=== PATIENT | male | born 1945 | race Caucasian/White ===

== ENCOUNTER 2018-09-24 08:12 | Emergency (ER) | payer MEDICARE ==
[2018-09-24] MEDS ORDERED: 0.9 % SODIUM CHLORIDE 1,000 ML BAG IV ONE (08:23)
[2018-09-24] MEDS ORDERED: KETOROLAC 30 MG/ML VIAL IVP ONE (08:28)
--- NOTE | 2018-09-24 08:34 | Emergency Department Record ---
History of Present Illness - General Chief Complaint: Back Pain/Injury Stated Complaint: BACK PAIN/LEG PAIN Time Seen by Provider: 09/24/18 08:23 Source: Patient, RN notes reviewed - History of Present Illness Initial Comments: patient tripped on the dog about 8 hours ago and injuried his left shoulder and right hip and back. He already was having back pain and saw me in the office yesterday and had a lumbar strain and started on flexeril and motrin and ultram. Patient said he got off the floor and laid on the couch and could not get up from the couch because of pain and EMS called and he was transported here. Patient complains of tingling in legs bilaterally from the waist down which is new since the fall. No head or neck pain and no LOC Onset/Timin -: Days(s) Similar Symptoms Previously: Yes Place: Home Radiation: Left leg, Right leg Severity: Severe Severity scale (1-10): 9 Quality: Sharp, Tingling Consistency: Constant Improves With: Immobilization Worsens With: Movement Context: Fall Associated Symptoms: Denies other symptoms - Related Data Home Medications Medication Instructions Recorded Confirmed Last Taken Cyclobenzaprine HCl [Flexeril] 10 mg PO TID 09/24/18 09/24/18 09/23/18 20:00 Sertraline HCl [Zoloft] 50 mg PO Q8H 09/24/18 09/24/18 09/23/18 20:00 Tramadol HCl [Ultram] 50 mg PO Q8H 09/24/18 09/24/18 09/23/18 20:00 Previous Rx's Medication Instructions Recorded Tramadol HCl [Ultram] 50 mg PO Q8H #9 tab 09/24/18 Allergies Allergy/AdvReac Type Severity Reaction Status Date / Time No Known Drug Allergies Allergy Verified 09/24/18 08:21 Travel Screening - Travel/Exposure Within Last 30 Days Have you traveled within the last 30 days?: No Review of Systems Reviewed: No additional complaints except as noted below Constitutional: Reports: As per HPI. Denies: Chills, Fever, Malaise, Night sweats, Weakness, Weight change Eyes: Reports: As per HPI. Denies: Eye discharge, Eye pain, Photophobia, Vision change ENT: Reports: As per HPI. Denies: Congestion, Dental pain, Ear pain, Epistaxis , Hearing loss, Throat pain Respiratory: Reports: As per HPI. Denies: Cough, Dyspnea, Hemoptysis, Stridor, Wheezes Cardiovascular: Reports: As per HPI. Denies: Arrhythmia, Chest pain, Dyspnea on exertion, Edema, Murmurs, Orthopnea, Palpitations, Paroxysmal nocturnal dyspnea, Rheumatic Fever, Syncope Endocrine: Reports: As per HPI. Denies: Fatigue, Heat or cold intolerance, Polydipsia, Polyuria Gastrointestinal: Reports: As per HPI. Denies: Abdominal pain, Constipation, Diarrhea, Hematemesis, Hematochezia, Melena, Nausea, Vomiting Genitourinary: Reports: As per HPI. Denies: Dysuria, Frequency, Hematuria, Incontinence, Retention, Testicular pain, Testicular mass, Urgency Musculoskeletal: Reports: As per HPI, Other (left shoulder pain, right hip pain , back pain). Denies: Arthralgia, Back pain, Gout, Joint swelling, Myalgia, Neck pain Skin: Reports: As per HPI. Denies: Bruising, Change in color, Change in hair/ nails, Lesions, Pruritus, Rash Neurological: Reports: As per HPI. Denies: Abnormal gait, Confusion, Headache, Numbness, Paresthesias, Seizure, Tingling, Tremors, Vertigo, Weakness Psychiatric: Reports: As per HPI. Denies: Anxiety, Auditory hallucinations, Depression, Homicidal thoughts, Suicidal thoughts, Visual hallucinations Hematological/Lymphatic: Reports: As per HPI. Denies: Anemia, Blood Clots, Easy bleeding, Easy bruising, Swollen glands Past Medical History - SOCIAL HISTORY Smoking Status: Former smoker Alcohol Use: Occasional Drug Use: None - RESPIRATORY Hx Respiratory Disorders: No - CARDIOVASCULAR Hx Cardio Disorders: No - NEURO Hx Neuro Disorders: Yes Hx Dizziness: Yes Hx Headaches: Yes - GI Hx GI Disorders: No - Hx Genitourinary Disorders: No - ENDOCRINE Hx Endocrine Disorders: No - MUSCULOSKELETAL Hx Musculoskeletal Disorders: Yes Hx Arthritis: Yes - PSYCH Hx Psych Problems: Yes Hx Anxiety: Yes - HEMATOLOGY/ONCOLOGY Hx Hematology/Oncology Disorders: No Family Medical History Any Significant Family History?: No Physical Exam - General General Appearance: Alert, Oriented x3, Cooperative, Mild distress - Head Head exam: Normal inspection - Eye Eye exam: Normal appearance, PERRL Pupils: Normal accommodation - ENT ENT exam: Normal exam, Mucous membranes moist, Normal external ear exam, Normal orophraynx, TM's normal bilaterally Ear exam: Normal external inspection. negative: External canal tenderness Nasal Exam: Normal inspection. negative: Discharge, Sinus tenderness Mouth exam: Normal external inspection, Tongue normal Teeth exam: Normal inspection. negative: Dental caries Throat exam: Normal inspection. negative: Tonsillar erythema, Tonsillar exudate - Neck Neck exam: Normal inspection, Full ROM. negative: Tenderness - Respiratory Respiratory exam: Normal lung sounds bilaterally. negative: Respiratory distress - Cardiovascular Cardiovascular Exam: Regular rate, Normal rhythm, Normal heart sounds - GI/Abdominal GI/Abdominal exam: Soft, Normal bowel sounds. negative: Tenderness - Rectal Rectal exam: Deferred - exam: Deferred - Extremities Extremities exam: Normal inspection, Full ROM, Normal capillary refill, Tenderness (left shoulder pain and right hip pain and low back pain. ) - Back Back exam: Reports: Normal inspection, Full ROM. Denies: Muscle spasm, Rash noted, Tenderness - Neurological Neurological exam: Alert, Oriented X3, Reflexes normal, Other (patient able to bend knees bilaterally and raise legs off bed,neuro vascular intact except numbness into both legs) - Psychiatric Psychiatric exam: Normal affect, Normal mood - Skin Skin exam: Dry, Intact, Normal color, Warm Course Vital Signs 09/24/18 08:15 Temperature 98.3 F Pulse Rate 71 Respiratory 20 Rate Blood Pressure 129/93 Pulse Ox 98 Medical Decision Making - Data Complexity MDM Data: X-Ray Ordered and/or Reviewed (negative for fractures) - Lab Data Result diagrams: 09/24/18 08:30 09/24/18 08:30 Disposition Clinical Impression: Contusion, back Qualifiers: Encounter type: initial encounter Laterality: right Qualified Code(s): S20.221A - Contusion of right back wall of thorax, initial encounter Contusion of shoulder Qualifiers: Encounter type: initial encounter Laterality: left Qualified Code(s): S40.012A - Contusion of left shoulder, initial encounter Contusion of hip, right Qualifiers: Encounter type: initial encounter Qualified Code(s): S70.01XA - Contusion of right hip, initial encounter Disposition: Home, Self-Care Condition: (1) Good Instructions: Low Back Strain (ED), Contusion in Adults (ED) Additional Instructions: follow up with Dr Man on next Oct 02 ice to back for 48 hours 20 minutes at a time than switch to heat 20 minutes at a time Prescriptions: Tramadol HCl [Ultram] 50 mg PO Q8H #9 tab Forms: Patient Portal Access Time of Disposition: 11:11 Quality - Quality Measures Quality Measures: N/A - Blood Pressure Screening Does Patient Have Any of the Following: No Blood Pressure Classification: Hypertensive Reading Systolic Measurement: 129 Diastolic Measurement: 93 Screening for High Blood Pressure: < Pre-Hypertensive BP, F/U Documented > [ G8950] Pre-Hypertensive Follow-up Interventions: Referral to alternative/primary care provider.
[2018-09-24 08:48] LABS: BASO % 0.4 % (0-6); GRAN % 77.7 % (47-80); HEMATOCRIT 40.1 % (42.0-52.0); HEMOGLOBIN 14.1 gm/dl (14.0-18.0); LYMPH % 15.8 % (16-45); MEAN CELL VOLUME 92.2 fl (81-97); MEAN CORPUSCULAR HEMOGLOBIN 32.4 pg (27-33); MEAN CORPUSCULAR HGB CONC 35.2 g/dl (32-36); MEAN PLATELET VOLUME 9.4 fl (7.4-10.4); MONO % 4.1 % (0-9); PLATELET COUNT 191 K/uL (130-400); RED BLOOD COUNT 4.35 M/uL (4.40-5.70); RED CELL DISTRIBUTION WIDTH 12.9 % (11.5-14.5); WHITE BLOOD COUNT W/O DIFF 5.6 K/uL (4.2-12.2)
[2018-09-24 08:51] LABS: URINE APPEARANCE CLEAR; URINE BILIRUBIN NEGATIVE (NEGATIVE); URINE BLOOD NEGATIVE (NEGATIVE); URINE COLOR YELLOW; URINE GLUCOSE (UA) NEGATIVE (NEGATIVE); URINE KETONE NEGATIVE (NEGATIVE); URINE LEUKOCYTE ESTERASE NEGATIVE (NEGATIVE); URINE NITRITE NEGATIVE (NEGATIVE); URINE PROTEIN NEGATIVE (NEGATIVE); URINE UROBILINOGEN 0.2 E.U./dL (0.20 - 1.00)
[2018-09-24 09:01] LABS: BLOOD UREA NITROGEN 19 mg/dL (8-23); CREATININE 1.2 mg/dL (0.7-1.2); EST GLOMERULAR FILTRATION RATE > 60 mL/min
[2018-09-24 09:04] LABS: GLUCOSE,RANDOM 100 mg/dL (74-109)
[2018-09-24] MEDS ORDERED: HYDROMORPHONE HCL 2 MG/ML VIAL IVP ONE (10:19)
[2018-09-24] MEDS ORDERED: ONDANSETRON HCL IV 4 MG/2 ML VIAL IVP ONE (10:19)
--- NOTE | 2018-09-25 12:30 | RADIOLOGY REPORT ---
EXAM: AP PELVIS AND RIGHT HIP HISTORY: PAIN. TECHNIQUE: A single AP view of the pelvis and AP and frog leg views of the right hip were performed. FINDINGS: There is osteopenia. No evidence of fracture or dislocation. No avascular necrosis. Mild degenerative change of the superior acetabulum. IMPRESSION: NEGATIVE FOR FRACTURE OR DISLOCATION. JOB NUMBER: [id number] MTDD
--- NOTE | 2018-09-25 12:36 | RADIOLOGY REPORT ---
EXAM: LUMBOSACRAL SPINE HISTORY: BACK PAIN. TECHNIQUE: AP and lateral views of the lumbosacral spine were performed. FINDINGS: Normal height and alignment. No evidence of fracture, spondylolysis or spondylolisthesis. There is calcification of the abdominal aorta. IMPRESSION: 1. NO EVIDENCE OF FRACTURE, SPONDYLOLYSIS OR SPONDYLOLISTHESIS. 2. CALCIFICATION OF THE ABDOMINAL AORTA. JOB NUMBER: [id number] MTDD
--- NOTE | 2018-09-25 12:38 | RADIOLOGY REPORT ---
EXAM: LEFT SHOULDER HISTORY: INJURY. TECHNIQUE: Three views of the left shoulder were performed. FINDINGS: Mild degenerative change of the acromioclavicular and glenohumeral joint space. No evidence of fracture or dislocation. No lytic or blastic lesion. IMPRESSION: MILD DEGENERATIVE CHANGE OF THE ACROMIOCLAVICULAR AND GLENOHUMERAL JOINT SPACES. NO ACUTE PROCESS. JOB NUMBER: [id number] MTDD
== END 2018-09-24 11:44 | disposition home or self-care (01) ==
LOC: ER 08:12
DX: S20.221A Contusion of right back wall of thorax, initial encounter (principal); S40.012A Contusion of left shoulder, initial encounter; S70.01XA Contusion of right hip, initial encounter; R20.2 Paresthesia of skin; W01.198A Fall on same level from slipping, tripping and stumbling with subsequent striking against other object, initial encounter; Y92.009 Unspecified place in unspecified non-institutional (private) residence as the place of occurrence of the external cause; Z87.891 Personal history of nicotine dependence
CPT/HCPCS: 99284 ×2; 96374; 96375; 85025; 85730; 80048; 81003; 72100; 73030; 73502; G0480; J1885; J2405; J1170; 80320; J7030

== ENCOUNTER 2018-09-29 10:08 | Emergency (ER) | payer MEDICARE ==
[2018-09-29] MEDS ORDERED: SODIUM CHLORIDE 0.9% 500 ML IV ONE (10:24)
[2018-09-29] MEDS ORDERED: ONDANSETRON HCL IV 4 MG/2 ML VIAL IVP ONE (10:24)
[2018-09-29] MEDS ORDERED: MORPHINE SULFATE 10 MG/ML VIAL IVP ONE (10:24)
--- NOTE | 2018-09-29 10:37 | Emergency Department Record ---
History of Present Illness - General Chief Complaint: Back Pain/Injury Stated Complaint: BACK PAIN Time Seen by Provider: 09/29/18 10:17 Source: Patient, Family Mode of Arrival: EMS Limitations: No limitations - History of Present Illness Initial Comments: The patient is here due to worsening of his chronic back pain for the last 1-2 weeks. The pain now is worsening and he is having pain radiate to both buttocks with any standing or walking. The patient denies any leg weakness but does have bilateral paresthesias and what he describes as a R foot drop. Additionally he has had no bowel or bladder incontinence. The patient was in the ER 5 days ago for this also and was discharged on Flexeril and Tramadol. He has not been able to get up and walk since. Since discharge he has developed a macular rash to the backs of both arms but denies any rash anywhere else and no itching. MD Complaint: Back pain Onset/Timin -: Week(s) Similar Symptoms Previously: Yes Place: Home Improves With: None Worsens With: None Context: Unknown Associated Symptoms: Denies other symptoms - Related Data Allergies Allergy/AdvReac Type Severity Reaction Status Date / Time No Known Drug Allergies Allergy Verified 09/29/18 10:14 Travel Screening - Travel/Exposure Within Last 30 Days Have you traveled within the last 30 days?: No Review of Systems Constitutional: Denies: Chills, Fever Eyes: Denies: Eye discharge ENT: Denies: Congestion Respiratory: Denies: Cough, Dyspnea Cardiovascular: Denies: Chest pain Endocrine: Denies: Fatigue Gastrointestinal: Denies: Abdominal pain, Nausea Genitourinary: Denies: Hematuria Musculoskeletal: Reports: Back pain. Denies: Arthralgia Skin: Denies: Bruising Neurological: Reports: Abnormal gait Past Medical History - SOCIAL HISTORY Smoking Status: Former smoker Alcohol Use: None Drug Use: None - RESPIRATORY Hx Respiratory Disorders: No - CARDIOVASCULAR Hx Cardio Disorders: No - NEURO Hx Neuro Disorders: Yes Hx Dizziness: Yes Hx Headaches: Yes - GI Hx GI Disorders: No - Hx Genitourinary Disorders: No - ENDOCRINE Hx Endocrine Disorders: No - MUSCULOSKELETAL Hx Musculoskeletal Disorders: Yes Hx Arthritis: Yes - PSYCH Hx Psych Problems: Yes Hx Anxiety: Yes - HEMATOLOGY/ONCOLOGY Hx Hematology/Oncology Disorders: No Family Medical History Any Significant Family History?: No Physical Exam - General General Appearance: Alert, Oriented x3, Cooperative, No acute distress - Head Head exam: Atraumatic, Normocephalic, Normal inspection - Eye Eye exam: Normal appearance, PERRL - Neck Neck exam: Normal inspection, Full ROM. negative: Tenderness - Respiratory Respiratory exam: Normal lung sounds bilaterally. negative: Respiratory distress - Cardiovascular Cardiovascular Exam: Regular rate, Normal rhythm, Normal heart sounds - GI/Abdominal GI/Abdominal exam: Soft, Normal bowel sounds. negative: Rebound, Rigid, Tenderness - Rectal Rectal exam: Decreased rectal tone. negative: Normal rectal tone (decreased tone but present.) - Extremities Extremities exam: Normal inspection, Full ROM, Normal capillary refill, Other ( DP pulses 2+ bilaterally.). negative: Tenderness - Back Back exam: Reports: Normal inspection, Paraspinal tenderness (in the L3-5 area.) , Vertebral tenderness - Neurological Neurological exam: Abnormal gait, Alert, Motor sensory deficit (The patient has 4+/5 pain to all the lower leg muscle groups due to pain and is unable to extend the R foot. He clearly has a R foot drop. ), Oriented X3, Other (There is positive SLR signs bilaterally.). negative: Altered, Normal gait, Reflexes normal (The patellar reflexes are 1+ in the bilateral patellar areas and Tr. in the achilles areas.) Course Vital Signs 09/29/18 10:09 Temperature 98.4 F Pulse Rate 105 H Respiratory 20 Rate Blood Pressure 169/101 Pulse Ox 94 L - Reevaluation(s) Reevaluation #1: The patient is doing OK at this time but due to the nature of his complaints I do feel he needs an urgent MRI. He would like to go to [facility] so I did discuss the case with Dr. Davis in the ER and he does accept the patient in transfer. I also did discuss the case with Dr. Alva (Neurosurg) about the patient and he also is aware. 09/29/18 11:18 Medical Decision Making - Data Complexity MDM Data: Labs Ordered and/or Reviewed - Lab Data Result diagrams: 09/29/18 10:30 09/29/18 10:30 Disposition Disposition: Transfer Clinical Impression: Lumbar radiculopathy, acute Disposition: Acute Care Hospital Transfer Transfer To: [facility] ED Reason For Transfer: Neurosurg Accepting Physician: Ryan Time Discussed w/Accepting Physician: 11:21 Condition: (2) Stable Instructions: Low Back Strain (ED) Forms: Patient Portal Access Time of Disposition: 11:21 Quality - Quality Measures Quality Measures: N/A - Blood Pressure Screening View Details: Yes Does Patient Have Any of the Following: No Blood Pressure Classification: Hypertensive Reading Systolic Measurement: 171 Diastolic Measurement: 94 Screening for High Blood Pressure: < First Hypertensive BP, F/U Documented > [ G8950] First Hypertensive Follow-up Interventions: Referral to alternative/primary care provider.
[2018-09-29 10:42] LABS: BASO % 0.2 % (0-6); EOS % 1.3 % (0-6); GRAN % 79.7 % (47-80); HEMATOCRIT 43.2 % (42.0-52.0); HEMOGLOBIN 15.5 gm/dl (14.0-18.0); LYMPH % 12.6 % (16-45); MEAN CELL VOLUME 89.6 fl (81-97); MEAN CORPUSCULAR HEMOGLOBIN 32.2 pg (27-33); MEAN CORPUSCULAR HGB CONC 35.9 g/dl (32-36); MEAN PLATELET VOLUME 9.3 fl (7.4-10.4); MONO % 6.2 % (0-9); PLATELET COUNT 225 K/uL (130-400); RED BLOOD COUNT 4.82 M/uL (4.40-5.70); RED CELL DISTRIBUTION WIDTH 12.9 % (11.5-14.5); WHITE BLOOD COUNT W/O DIFF 5.9 K/uL (4.2-12.2)
[2018-09-29 10:51] LABS: BLOOD UREA NITROGEN 28 mg/dL (8-23); CREATININE 0.9 mg/dL (0.7-1.2); EST GLOMERULAR FILTRATION RATE > 60 mL/min
[2018-09-29 10:54] LABS: GLUCOSE,RANDOM 123 mg/dL (74-109)
[2018-09-29] MEDS ORDERED: HYDROMORPHONE HCL 2 MG/ML VIAL IVP ONE (10:54)
[2018-09-29 10:57] LABS: C-REACTIVE PROTEIN 1.68 mg/dL (<0.5)
[2018-09-29 11:23] LABS: ERYTHROCYTE SEDIMENTATION RATE 28 mm/hr (0-20)
== END 2018-09-29 11:45 | disposition short-term general hospital (02) ==
LOC: ER 10:08
DX: M54.16 Radiculopathy, lumbar region (principal); R21 Rash and other nonspecific skin eruption; Z87.891 Personal history of nicotine dependence
CPT/HCPCS: 99285 ×2; 96374; 96375; 85025; 85651; 86140; 80048; J2405; J2270

== ENCOUNTER 2018-10-02 16:06 | Inpatient (IN) | payer MEDICARE ==
--- NOTE | 2018-10-02 18:28 | History & Physical ---
History of Present Illness - Date Date of Service for History & Physical: 10/02/18 - History of Present Illness Admitting Diagnosis: Deconditioning due L3-4 fragment and cord compression S/P laminectomy History of Present Illness: Patient is here at [facility] rehab from an injury wher he fell and developed a cord compression from disc fragments requiring urgent neurosurg for a laminectomy L3 with L3-L4 discectomy. Patient has a persistent right foot drop and he was fitted for a AFO right lower leg. His discharge diagnoses were Acute on Chronic Low back pain with radiculopathy, Large L3-L4 disc protrusion with sequestered free fragment with cord compression S/P surgery on 09/30/2017. Right Foot droop,HRN,Urnary retention,HLD. Patient informed me he had trouble with the pain medication wheere he was seeing things and also became agitated. currently sent home with tylenol and norco and I told him to try to limit the norco as much as possible. General - Cognitive Patterns Orientation: Oriented x3 - Communication Preferred Language?: Slovenian [employer] Required: No Level of Education: College Preferred Method of Learning: Seeing, Doing Comprehension Ability: No Impairment Able to Read: Yes Able to Write: Yes Select best description of speech pattern: Clear Speech Ability to express ideas and wants: Understood Understanding verbal content: Understands - Psychosocial Well-Being Usual Living Arrangement: Spouse - Physical Functioning Activity Level: Up with assist x1 Turning: Self ad ricky ROM Ability: Moves all extremities Assistive Devices: 2 Wheel Walker Ambulation Ability: Needs Assist Bed Mobility: Independent Transfer Ability: Needs Assist Bathing Ability: Needs Assist Personal Hygiene: Independent Dressing Ability: Independent Eating (Feeding) Ability: Independent Toileting Ability: Needs Assist Administer Own Medication: Independent - Continence Bowel Pattern: Constipated Bladder Pattern: Normal - Dental Status Unable to examine: No Broken or loosely fitting full or partial dentures: No No natural teeth or tooth fragment(s) (edentulous): No Abnormal mouth tissue (ulcers, masses, oral lesions, etc.): No Obvious or likely cavity or broken natural teeth: No Inflamed or bleeding gums or loose natural teeth: No Mouth/facial pain, discomfort or difficulty chewing: No - Nutrition Screening Poor oral intake > 1 week: No Unplanned weight loss in specified time frame: No Nutrition Support via tube feedings or parenteral nutrition: No Pressure Ulcer: No Significantly underweight define as BMI <18.5 kg/m2: No Albumin <2.5mg/dL: No Persistent nausea/vomiting/diarrhea >3 days: No Difficulty chewing/swallowing/mouth sores: No Admitting Diagnosis: No Nutrition Risk Score: Low Risk Review of Systems Reviewed: No additional complaints except as noted below Constitutional: Reports: As per HPI. Denies: Chills, Fever, Malaise, Night sweats, Weakness, Weight change Eyes: Reports: As per HPI. Denies: Eye discharge, Eye pain, Photophobia, Vision change ENT: Reports: As per HPI. Denies: Congestion, Dental pain, Ear pain, Epistaxis , Hearing loss, Throat pain Respiratory: Reports: As per HPI. Denies: Cough, Dyspnea, Hemoptysis, Stridor, Wheezes Cardiovascular: Reports: As per HPI. Denies: Arrhythmia, Chest pain, Dyspnea on exertion, Edema, Murmurs, Orthopnea, Palpitations, Paroxysmal nocturnal dyspnea, Rheumatic Fever, Syncope Endocrine: Reports: As per HPI. Denies: Fatigue, Heat or cold intolerance, Polydipsia, Polyuria Gastrointestinal: Reports: As per HPI. Denies: Abdominal pain, Constipation, Diarrhea, Hematemesis, Hematochezia, Melena, Nausea, Vomiting Genitourinary: Reports: As per HPI. Denies: Dysuria, Frequency, Hematuria, Incontinence, Retention, Testicular pain, Testicular mass, Urgency Musculoskeletal: Reports: As per HPI. Denies: Arthralgia, Back pain, Gout, Joint swelling, Myalgia, Neck pain Skin: Reports: As per HPI. Denies: Bruising, Change in color, Change in hair/ nails, Lesions, Pruritus, Rash Neurological: Reports: As per HPI, Numbness (right leg and right foot drop). Denies: Abnormal gait, Confusion, Headache, Paresthesias, Seizure, Tingling, Tremors, Vertigo, Weakness Psychiatric: Reports: As per HPI. Denies: Anxiety, Auditory hallucinations, Depression, Homicidal thoughts, Suicidal thoughts, Visual hallucinations Hematological/Lymphatic: Reports: As per HPI. Denies: Anemia, Blood Clots, Easy bleeding, Easy bruising, Swollen glands Past Medical History - SOCIAL HISTORY Smoking Status: Former smoker Alcohol Use: Occasional - SURGICAL HISTORY Past Surgical History: appendix - RESPIRATORY Hx Respiratory Disorders: No - CARDIOVASCULAR Hx Cardio Disorders: No Hx Hypertension: Yes - NEURO Hx Neuro Disorders: Yes Hx Dizziness: Yes Hx Headaches: Yes Comment:: cord compression from L3 l4 disc and right foot drop - GI Hx GI Disorders: No - Hx Genitourinary Disorders: No - ENDOCRINE Hx Endocrine Disorders: No - MUSCULOSKELETAL Hx Musculoskeletal Disorders: Yes Hx Arthritis: Yes - PSYCH Hx Psych Problems: Yes Hx Anxiety: Yes - HEMATOLOGY/ONCOLOGY Hx Hematology/Oncology Disorders: No Family Medical History Any Significant Family History?: Yes Hx Alcohol Use: Brother/Sister Hx Cancer: Mother H&P Meds/Allergies - Allergies Allergies: Allergies Allergy/AdvReac Type Severity Reaction Status Date / Time No Known Drug Allergies Allergy Verified 09/29/18 10:14 - Active Medications Active Medications: Current Medications Acetaminophen (Tylenol 325mg) 650 mg PO Q4H PRN PRN Reason: PAIN - MILD(1-4)/FEVER Hydrocodone Bitart/Acetaminophen ([place] 5mg/325mg) 1 each PO Q4H PRN PRN Reason: PAIN - MOD TO SEVERE (5-10) Cyclobenzaprine HCl (Flexeril) 10 mg PO TID PRN PRN Reason: MUSCLE SPASM Patient Own Med: Ergocalciferol 50, 000 Iu 1 each PO WEEKLY KAMILLA Sertraline HCl (Zoloft) 150 mg PO DAILY KAMILLA Physical Exam - General General Appearance: Alert, Oriented x3, Cooperative, No acute distress - Head Head exam: Normal inspection - Eye Eye exam: Normal appearance, PERRL Pupils: Normal accommodation - ENT ENT exam: Normal exam, Mucous membranes moist, Normal external ear exam, Normal orophraynx, TM's normal bilaterally Ear exam: Normal external inspection. negative: External canal tenderness Nasal Exam: Normal inspection. negative: Discharge, Sinus tenderness Mouth exam: Normal external inspection, Tongue normal Teeth exam: Normal inspection. negative: Dental caries Throat exam: Normal inspection. negative: Tonsillar erythema, Tonsillar exudate - Neck Neck exam: Normal inspection, Full ROM. negative: Tenderness - Respiratory Respiratory exam: Normal lung sounds bilaterally. negative: Respiratory distress - Cardiovascular Cardiovascular Exam: Regular rate, Normal rhythm, Normal heart sounds - GI/Abdominal GI/Abdominal exam: Soft, Normal bowel sounds. negative: Tenderness - Rectal Rectal exam: Deferred - exam: Deferred - Extremities Extremities exam: Normal inspection, Full ROM, Normal capillary refill, Other ( numbness right leg with right foot drop). negative: Tenderness - Back Back exam: Reports: Normal inspection, Full ROM. Denies: Muscle spasm, Rash noted, Tenderness - Neurological Neurological exam: Abnormal gait, Alert, Oriented X3, Reflexes normal, Other ( right foot drop) - Psychiatric Psychiatric exam: Normal affect, Normal mood - Skin Skin exam: Dry, Intact, Normal color, Warm H&P Results - Labs Result Diagrams: 10/03/18 06:00 10/03/18 06:00 Discharge Potential - Discharge Needs Community Services Used Prior to Admission: None Patient Discharge Plan Description: Return Home Plan - Swing Bed Certification Initial Certification Due: 10/02/18 14 Day Re-Cert Due: 10/16/18 44 Day Re-Cert Due: 11/15/18 74 Day Re-Cert Due: 12/15/18 - Detailed Diagnosis and Plan (1) Cord compression myelopathy Current Visit: Yes Status: Acute Base Code: G95.20 - UNSPECIFIED CORD COMPRESSION (2) Foot drop, right Current Visit: Yes Status: Acute Base Code: M21.371 - FOOT DROP, RIGHT FOOT (3) Acute exacerbation of chronic low back pain Current Visit: Yes Status: Acute Base Code: M54.5 - LOW BACK PAIN; G89.29 - OTHER CHRONIC PAIN (4) Hypertension Current Visit: Yes Status: Acute Base Code: I10 - ESSENTIAL (PRIMARY) HYPERTENSION (5) History of urinary retention Current Visit: Yes Status: Acute Base Code: Z87.898 - PERSONAL HISTORY OF OTHER SPECIFIED CONDITIONS Comment: resolved and doesn't have a varma - Disposition rehab to go home
[2018-10-02] MEDS: MAGNESIUM HYDROXIDE 30 ML UDC PO PRN (22:55)
[2018-10-03 06:29] LABS: BASO % 0.2 % (0-6); EOS % 0.9 % (0-6); GRAN % 72.4 % (47-80); HEMATOCRIT 37.8 % (42.0-52.0); HEMOGLOBIN 13.3 gm/dl (14.0-18.0); LYMPH % 16.4 % (16-45); MEAN CELL VOLUME 91.5 fl (81-97); MEAN CORPUSCULAR HEMOGLOBIN 32.2 pg (27-33); MEAN CORPUSCULAR HGB CONC 35.2 g/dl (32-36); MEAN PLATELET VOLUME 9.3 fl (7.4-10.4); MONO % 10.1 % (0-9); PLATELET COUNT 213 K/uL (130-400); RED BLOOD COUNT 4.13 M/uL (4.40-5.70); RED CELL DISTRIBUTION WIDTH 12.3 % (11.5-14.5); WHITE BLOOD COUNT W/O DIFF 6.3 K/uL (4.2-12.2)
[2018-10-03 06:51] LABS: BLOOD UREA NITROGEN 20 mg/dL (8-23); CREATININE 0.9 mg/dL (0.7-1.2); EST GLOMERULAR FILTRATION RATE > 60 mL/min; GLUCOSE,RANDOM 118 mg/dL (74-109)
--- NOTE | 2018-10-03 09:33 | Physician Progress Note ---
Subjective - Date Date of Progress Note: 10/03/18 - Admitting Diagnosis Diagnosis: Deconditioning due L3-4 fragment and cord compression S/P laminectomy - Subjective Events since last encounter: patient has some bruising on the right hand dorsum. Reevaluated his right leg patient has small amount of movement of toes and not any motion of ankle with extension and dorsi flexion. Good motion of knee right and hip and he has an AFO brace. Patient said the bruising on his hand was notice today and he had two similiar spots on his elbows which happened at [place] after surgery and they are going away and the spot on his hand has a spot from either a blood draw or an IV. Will watch. Patient has been up to the bathroom 3-4 times during the night and not requiring any pain medications per patient and will check with the [place]. Nursing Care Plan Problem List Activity Intolerance (Swing Bed) Start: 10/02/18 16: 21 Freq: Status: Active Protocol: Created 10/02/18 16:21 SS (Rec: 10/02/18 16:21 SS [id number]) Knowledge Deficit (Swing Bed) Start: 10/02/18 16: 21 Freq: Status: Active Protocol: Created 10/02/18 16:21 SS (Rec: 10/02/18 16:21 SS [id number]) Pain (Swing Bed) Start: 10/02/18 16: 21 Freq: Status: Active Protocol: Created 10/02/18 16:21 SS (Rec: 10/02/18 16:21 SS [id number]) Subjective: Patient denies much pain in the back and has not used any pain medication since admission. Patient waking to the bathroom with a walker and one person assist. Patient sat up in bed with a one person assist. - Subjective Detail Comment: No additional complaints except as noted below General - Cognitive Patterns Speech: Normal Thought Process: Intact Thought Content: Normal - Communication Select best description of speech pattern: Clear Speech Ability to express ideas and wants: Understood Understanding verbal content: Understands - Mood and Behavior Patterns Appearance: Well Groomed Mood: Normal Attitude: Cooperative Motor Activity: Calm Affect: Appropriate Hallucinations: Denies - Physical Functioning Activity Level: Up with assist x1 Turning: Self ad ricky ROM Ability: Moves all extremities Assistive Devices: 2 Wheel Walker Ambulation Ability: Needs Assist Bed Mobility: Independent Transfer Ability: Needs Assist Bathing Ability: Needs Assist Personal Hygiene: Independent Dressing Ability: Independent Eating (Feeding) Ability: Independent Toileting Ability: Needs Assist Administer Own Medication: Independent - Continence Bowel Pattern: Constipated Bladder Pattern: Normal Meds/Allergies - Allergies Allergies Allergy/AdvReac Type Severity Reaction Status Date / Time No Known Drug Allergies Allergy Verified 09/29/18 10:14 - Active Medications Current Medications Acetaminophen (Tylenol 325mg) 650 mg PO Q4H PRN PRN Reason: PAIN - MILD(1-4)/FEVER Hydrocodone Bitart/Acetaminophen ([place] 5mg/325mg) 1 each PO Q4H PRN PRN Reason: PAIN - MOD TO SEVERE (5-10) Cyclobenzaprine HCl (Flexeril) 10 mg PO TID PRN PRN Reason: MUSCLE SPASM Enoxaparin Sodium (Lovenox) 40 mg SQ DAILY [facility] Magnesium Hydroxide (Milk Of Magnesium) 30 ml PO DAILY PRN PRN Reason: INDIGESTION Last Admin: 10/02/18 22:55 Dose: 30 ml Patient Own Med: Ergocalciferol 50, 000 Iu 1 each PO WEEKLY [facility] Sertraline HCl (Zoloft) 150 mg PO DAILY [facility] Objective - Vital Signs Vital Signs: Vital Signs - Last 24 Hrs Temp Pulse Resp BP Pulse Ox 10/03/18 08:00 98.1 F 90 14 163/92 99 10/02/18 20:00 99.3 F 92 H 20 127/77 95 - General General Appearance: Alert, Oriented x3, Cooperative, No acute distress - Head Head exam: Normal inspection - Eye Eye exam: Normal appearance, PERRL Pupils: Normal accommodation - ENT ENT exam: Normal exam, Mucous membranes moist, Normal external ear exam, Normal orophraynx, TM's normal bilaterally Ear exam: Normal external inspection. negative: External canal tenderness Nasal Exam: Normal inspection. negative: Discharge, Sinus tenderness Mouth exam: Normal external inspection, Tongue normal Teeth exam: Normal inspection. negative: Dental caries Throat exam: Normal inspection. negative: Tonsillar erythema, Tonsillar exudate - Neck Neck exam: Normal inspection, Full ROM. negative: Tenderness - Respiratory Respiratory exam: Normal lung sounds bilaterally. negative: Respiratory distress - Cardiovascular Cardiovascular Exam: Regular rate, Normal rhythm, Normal heart sounds - GI/Abdominal GI/Abdominal exam: Soft, Normal bowel sounds. negative: Tenderness - Rectal Rectal exam: Deferred - exam: Deferred - Extremities Extremities exam: Normal inspection, Normal capillary refill, Other (numbness right leg with right foot drop, patient has movement of toes and no movement at ankle, his right knee moves and right hip moves). negative: Tenderness - Back Back exam: Reports: Normal inspection, Full ROM. Denies: Muscle spasm, Rash noted, Tenderness - Neurological Neurological exam: Abnormal gait, Alert, Oriented X3, Reflexes normal, Other ( right foot drop) - Psychiatric Psychiatric exam: Normal affect, Normal mood - Skin Skin exam: Dry, Intact, Normal color, Warm H&P Results - Labs Result Diagrams: 10/03/18 06:12 10/03/18 06:12 Labs Last 24 Hours: Laboratory Results - last 24 hr 10/03/18 10/03/18 06:12 06:12 WBC 6.3 RBC 4.13 L Hgb 13.3 L Hct 37.8 L MCV 91.5 MCH 32.2 MCHC 35.2 RDW 12.3 Plt Count 213 MPV 9.3 Gran % 72.4 Lymphocytes % 16.4 Monocytes % 10.1 H Eosinophils % 0.9 Basophils % 0.2 Sodium 138 Potassium 3.7 Chloride 99 Carbon Dioxide 27.0 Anion Gap 12.0 BUN 20 Creatinine 0.9 Estimated GFR > 60 Random Glucose 118 H Calcium 9.3 Discharge Potential - Discharge Needs Community Services Used Prior to Admission: None Patient Discharge Plan Description: Return Home Plan - Swing Bed Certification Initial Certification Due: 10/02/18 14 Day Re-Cert Due: 10/16/18 44 Day Re-Cert Due: 11/15/18 74 Day Re-Cert Due: 12/15/18 - Detailed Diagnosis and Plan (1) Cord compression myelopathy Current Visit: Yes Status: Acute Base Code: G95.20 - UNSPECIFIED CORD COMPRESSION Priority: High (2) Foot drop, right Current Visit: Yes Status: Acute Base Code: M21.371 - FOOT DROP, RIGHT FOOT Priority: Medium (3) Acute exacerbation of chronic low back pain Current Visit: Yes Status: Acute Base Code: M54.5 - LOW BACK PAIN; G89.29 - OTHER CHRONIC PAIN Priority: Medium (4) Hypertension Current Visit: Yes Status: Acute Base Code: I10 - ESSENTIAL (PRIMARY) HYPERTENSION (5) History of urinary retention Current Visit: Yes Status: Acute Base Code: Z87.898 - PERSONAL HISTORY OF OTHER SPECIFIED CONDITIONS Priority: Medium Comment: resolved and doesn't have a varma (6) Contusion of hand, right Current Visit: Yes Status: Acute Base Code: S60.221A - CONTUSION OF RIGHT HAND, INITIAL ENCOUNTER Priority: Low (7) Muscular deconditioning Current Visit: Yes Status: Acute Base Code: R29.898 - OTH SYMPTOMS AND SIGNS INVOLVING THE MUSCULOSKELETAL SYSTEM Priority: High Comment: Weakness in the right leg with some numbness and he has no motion in the right ankle and moves his toes slightly and he has a right foot drop with AFO brace - Disposition rehab to go home
[2018-10-03] MEDS ORDERED: ENOXAPARIN 40 MG/0.4 ML SYR SQ SCH (10:00)
[2018-10-03] MEDS: SERTRALINE HCL 50 MG TABLET PO SCH (10:17)
--- NOTE | 2018-10-03 10:54 | Rehab Evaluation ---
Patient Information - Patient Information Diagnosis: Deconditioning due to L3-L4 s/p Laminectomy Ordered Treatment: PT Evaluate and Treat Status: Initial Evaluation Surgery: Yes (L3-L4 Laminectomy) Date of Surgery: 09/30/18 Past Medical/Surgical Hx: PAST MEDICAL/SURGICAL HISTORY Past Surgical History appendix PMH - Respiratory Hx Respiratory Disorders No PMH - Cardiovascular Hx Cardiovascular Disorders No Hx Hypertension Yes PMH - Neuro Hx Neurological Disorders Yes Hx Dizziness Yes Hx Headaches Yes Comment: cord compression from L3 l4 disc and right foot drop PMH - GI Hx Gastrointestinal Disorders No PMH - Hx Genitourinary Disorders No PMH - Endocrine Hx Endocrine Disorders No PMH - Musculoskeletal Hx Musculoskeletal Disorders Yes Hx Arthritis Yes PMH - Psych Hx Psychiatric Problems Yes Hx Anxiety Yes PMH - Hematology/Oncology Hx Hematology/Oncology No Disorders Premorbid Status: Detail (Prior to fall the patient was independent with all mobility. 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 The patient's bedroom and bathroom are on the second floor, but patient will be staying on the first floor initially. The bathroom on the main floor is equipped with a walk in shower with no grab bars or seat and an elevated toilet. The patient has a front wheeled walker.) Precautions: [place], Fall, Other (R foot drop, has AFO.) - Time With Patient Total Time Spent With Patient (Min): 30 Treatment Procedures: Detail (Initial Evaluation, gait training) Subjective Information - Subjective Information Per Patient (The patient had complaints of fatigue and increased back pain after ambulating.) Objective Data - Pain Pain Present: Yes (The patient complain on lower back pain which increased after ambulation.) Pain Intensity: 3 Pain Scale Used: Numeric (1 - 10) - Mental Status Patient Orientation: Oriented x3 - Visual Perception Appears within normal limits for therapeutic activities - ROM Within normal limits (PROM of R LE was WNL, AROM of L LE was WNL. Trunk mobility was not evaluated due to s/p surgery.) - Strength/Tone Not within normal limits (The patient's L LE strength was generally 4+ to 5/5. R LE strength grades are as follows: dorsiflexors trace/5 ( visible, palpable contraction), 0/5 evertors, plantar flexors 3+/5 (seated), invertors 3/5, toe extensors 0/5, toe flexors 2/5, knee extensors 3-/5, knee flexors 3+/5, hip flexors 3-/5, hip abductors and adductors 3+/5.) - Bed Mobility Independent (The patient was independent with supine to and from sit transfer and scooting up in bed.) - Transfers Independent (Independent sit to stand with verbal cues to push up from surface.) - Balance Balance Sitting: Good Balance Standing: Fair (The patient requires support of walker due to R LE weakness.) - Sensation Deficit (The patient has diminished sensation to light touch and deep pressure L5, S1 dermatome pattern and absent to diminished sensation in L4 dermatome to deep pressure and light touch.) - Gait Detail (The patient ambulated with front wheeled walker with CG/supervision for safety a distance of 45 feet x 1. The patient's gait pattern is characterized by R foot drop which he compensated for by high step gait pattern on the RLE ( increased hip and knee flexion). The patient has an AFO which did not fit well in his current shoe (patient had numerous pressure points on dorsum of foot when AFO and shoe where placed on R LE.) The patient's is to look for a wider shoe or the patient is to return to therapeutic radiologist for proper fit.) Therapy Assessment - Therapy Assessment Detail (The patient has significant weakness in R LE and foot drop with ambulation. The patient is able to flex toes and has trace contraction of the dorsiflexor group which he did not have initially post op. The patient also states he now has more sensation in R toes and foot. The patient is independent with bed mobilty and requires CG/SBA with ambulation with a walker due to foot drop. Feel the patient is a good rehab candidate and will progress well. Will contact therapeutic radiologist if patient is unable to find proper footwear for AFO.) Problem List - Problem List Physical Therapy Problem List: Detail (1) Decreased R LE strength and sensation 2) Impaired gait pattern due to R LE strength and sensory deficits 3) Nonambulatory on stairs) Goals - Goals Physical Therapy Goals: 1) Instruct patient in HEP of R LE strengthening exercises and exercises to facilitate R ankle movement. 2) The patient will ambulate independently with appropriate assistive device community distances. 3 ) The patient will ambulate on steps with supervision for safety using proper technique. 4) Increase LE strength 1/3 muscle grade to increase stability of gait. 5) The patient will be indpendent with all transfers. Prognosis - Prognosis Good Plan - Plan Physical Therapy Plan: PT 1-2 times a day M-F for gait training, transfer training, LE strengthening exercises.
--- NOTE | 2018-10-03 12:38 | Rehab Evaluation ---
Patient Information - Patient Information Diagnosis: Deconditioning due to L3-L4 fragment and cord compression, s/p Laminectomy Ordered Treatment: OT Evaluate and Treat Status: Initial Evaluation Surgery: Yes (L3-L4 Laminectomy) Date of Surgery: 09/30/18 Past Medical/Surgical Hx: PAST MEDICAL/SURGICAL HISTORY Past Surgical History appendix PMH - Respiratory Hx Respiratory Disorders No PMH - Cardiovascular Hx Cardiovascular Disorders No Hx Hypertension Yes PMH - Neuro Hx Neurological Disorders Yes Hx Dizziness Yes Hx Headaches Yes Comment: cord compression from L3 l4 disc and right foot drop PMH - GI Hx Gastrointestinal Disorders No PMH - Hx Genitourinary Disorders No PMH - Endocrine Hx Endocrine Disorders No PMH - Musculoskeletal Hx Musculoskeletal Disorders Yes Hx Arthritis Yes PMH - Psych Hx Psychiatric Problems Yes Hx Anxiety Yes PMH - Hematology/Oncology Hx Hematology/Oncology No Disorders Premorbid Status: Detail (Prior to fall (approx. 2 months ago) the patient was independent with all mobility. 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 The patient shared home mgmt, meal prep and laundry tasks with his , he was responsible for yard work.) Social History: Detail (The patient lives with spouse in a 2 story house with 1 step on the porch and 1 step into the home with no railings. The patient's bedroom and bathroom are on the second floor, but patient will be staying on the first floor initially. The bathroom on the main floor is equipped with a walk in shower with no grab bars or seat and an elevated toilet. The patient has a front wheeled walker and an AFO.) Precautions: [place], Fall, Other (R foot drop, has AFO.) - Time With Patient Total Time Spent With Patient (Min): 35 Treatment Procedures: Detail (OT eval low complexity) Subjective Information - Subjective Information Per Patient Objective Data - Pain Pain Present: Yes (2-3/10 in back) - Mental Status Patient Orientation: Oriented x3 - Visual Perception Appears within normal limits for therapeutic activities - ROM Within normal limits (Ash UE AROM WNL although pt has pain with left shoulder flexion due to injuring it during fall.) - Strength/Tone Not within normal limits (Ash UE strength 4+/5 with exception of left shoulder flexion which is 4-/5) - Coordination Appears within normal limits for therapeutic activities - Bed Mobility Independent (Ind with supine to sit and sit to supine.) - Transfers Independent (Ind with sit to stand from EOB.) - Balance Balance Sitting: Good Balance Standing: Good - Sensation Intact (Intact ash UEs) - Gait Detail (Pt ambulating in room with 2 wheeled walker and SBA.) - ADL's/IADL's Detail (Pt reports he is toileting Indly, he was Ind with doffing slipper socks and donning socks and left shoe, pt required max assist to don right shoe due to foot drop. Pt deferred shower and total body dressing at this time as he was fatigued from evaluation.) Therapy Assessment - Therapy Assessment Detail (Pt presents with decreased activity tolerance, left shoulder weakness and pain and decreased Ind with self cares.) Problem List - Problem List Physical Therapy Problem List: Detail (1) Decreased R LE strength and sensation 2) Impaired gait pattern due to R LE strength and sensory deficits 3) Nonambulatory on stairs) Occupational Therapy Problem List: Detail (1. Decreased activity tolerance needed for safe and Ind ADLs/IADLs. 2. Decreased left shoulder strength. 3. Decreased Ind with self care tasks.) Goals - Goals Physical Therapy Goals: 1) Instruct patient in HEP of R LE strengthening exercises and exercises to facilitate R ankle movement. 2) The patient will ambulate independently with appropriate assistive device community distances. 3 ) The patient will ambulate on steps with supervision for safety using proper technique. 4) Increase LE strength 1/3 muscle grade to increase stability of gait. 5) The patient will be indpendent with all transfers. Occupational Therapy Goals: 1. Pt will demonstrate improved activity tolerance to allow Ind with self cares and IADLs. 2. Pt will demonstrate improved left shoulder strength to 4+/5 to allow use for all IADLs. 3. Pt will be safe and Ind with showering and total body dressing. Prognosis - Prognosis Good Plan - Plan Physical Therapy Plan: PT 1-2 times a day M-F for gait training, transfer training, LE strengthening exercises. Occupational Therapy Plan: OT 2-4 times per week to address UE function, activity tolerance, ADLs and IADLs.
--- NOTE | 2018-10-03 15:05 | Physical Therapy Tx Note ---
Physical Therapy Tx Note - Treatment Note Tolerated: Good Total Time Spent With Patient: 25 Physical Therapy Tx Note: Detail (The patient was in bed when PT arrived. The patient's AFO was placed in shoe after insert was removed. Patient required minimal PA to put on shoe and AFO due to toes curling. Patient denied pinching on dorsum of foot when standing. The patient ambulated with AFO and front wheeled walker with CG of one and verbal cues for proper gait pattern with use of AFO, a distance of 45 feet x 1. The patient was instructed in a home exercise program including ankle dorsi and plantar flexion, toe flexion extension, ankle inversion and eversion, seated resisted hip abduction, hamstring curls, knee extension and hip marching. The patient exhibited good understanding of HEP.) Physical Therapy Problem List: Detail (1) Decreased R LE strength and sensation 2) Impaired gait pattern due to R LE strength and sensory deficits 3) Nonambulatory on stairs) Physical Therapy Goals: 1) Instruct patient in HEP of R LE strengthening exercises and exercises to facilitate R ankle movement. 2) The patient will ambulate independently with appropriate assistive device community distances. 3 ) The patient will ambulate on steps with supervision for safety using proper technique. 4) Increase LE strength 1/3 muscle grade to increase stability of gait. 5) The patient will be indpendent with all transfers. Physical Therapy Plan: PT 1-2 times a day M-F for gait training, transfer training, LE strengthening exercises.
[2018-10-04] MEDS: CYCLOBENZAPRINE 10MG TABLET PO PRN (09:30)
[2018-10-04] MEDS: ACETAMINOPHEN 325 MG TAB PO PRN ×2 (09:30→15:37)
[2018-10-04] MEDS: SERTRALINE HCL 50 MG TABLET PO SCH (09:30)
[2018-10-05] MEDS: CYCLOBENZAPRINE 10MG TABLET PO PRN ×3 (01:41→20:09)
[2018-10-05] MEDS: HYDROCODONE/APAP 5/325MG TABLET PO PRN (01:41)
[2018-10-05] MEDS: SERTRALINE HCL 50 MG TABLET PO SCH (09:35)
[2018-10-05] MEDS: ACETAMINOPHEN 325 MG TAB PO PRN ×2 (09:37→20:09)
[2018-10-05] MEDS: MAGNESIUM HYDROXIDE 30 ML UDC PO PRN (20:10)
[2018-10-06] MEDS: CYCLOBENZAPRINE 10MG TABLET PO PRN ×2 (02:57→22:22)
[2018-10-06] MEDS: HYDROCODONE/APAP 5/325MG TABLET PO PRN ×2 (02:58→22:22)
[2018-10-06] MEDS: SERTRALINE HCL 50 MG TABLET PO SCH (09:28)
--- NOTE | 2018-10-06 09:32 | Occupational Therapy Tx Note ---
Occupational Therapy Tx Note - Treatment Note Tolerated: Good Total Time Spent With Patient: 35 (ADL) Occupational Therapy Treatment Note: Detail (S: Pt resting in bed, ready for shower. O: Supine to sit Indly. Pt amb to shower with 2 wheeled walker and SBA. Pt doffed shirt, PJ bottoms and slipper socks in sitting Indly. Pt completed total body showering in sitting and standing with walker placed in shower, Indly. Pt dried self Indly and donned shirt, PJ bottoms and slipper socks Indly. Pt amb to sink with walker and completed oral hygiene, shaving and brushing hair in standing Indly. Pt amb to chair with 2 wheeled walker Indly. A: Pt is Ind with showering in sitting and standing, Ind with dressing with exception of AFO and shoe, Ind with grooming and hygiene.) Occupational Therapy Problem List: Detail (1. Decreased activity tolerance needed for safe and Ind ADLs/IADLs. 2. Decreased left shoulder strength. 3. Decreased Ind with self care tasks.) Occupational Therapy Goals: 1. Pt will demonstrate improved activity tolerance to allow Ind with self cares and IADLs. 2. Pt will demonstrate improved left shoulder strength to 4+/5 to allow use for all IADLs. 3. Pt will be safe and Ind with showering and total body dressing. Prognosis: Good Occupational Therapy Plan: OT 2-4 times per week to address UE function, activity tolerance, ADLs and IADLs.
[2018-10-06] MEDS ORDERED: ERGOCALCIFEROL (VITAMIN D2) 50,000 UNIT CAPSULE PO SCH (10:00)
--- NOTE | 2018-10-06 11:59 | Physical Therapy Tx Note ---
Physical Therapy Tx Note - Treatment Note Tolerated: Good Total Time Spent With Patient: 30 Physical Therapy Tx Note: Detail (The patient was in bed when PT arrived. The patient reports he has been completing LE over the weekend and ambulation. The patient required assist to don AFO. The patient was independent with sit to and from stand transfer. The patient ambulated with front wheeled walker and R AFO a distance of 134 feet x 1 with supervision for safety. The patient completed the following exercises in a seated position: hip adductor squeezes, LAQ, quad sets, hamstring sets and abdominal isometrics all x 10 reps. The patient also completed supine toe wiggles and ankle dorsiflexion ( trace contraction in anterior tib.) Patient was left up in chair for lunch. Patient to have bring in another couple pairs of shoes to see in the fit with his AFO.) Physical Therapy Problem List: Detail (1) Decreased R LE strength and sensation 2) Impaired gait pattern due to R LE strength and sensory deficits 3) Nonambulatory on stairs) Physical Therapy Goals: 1) Instruct patient in HEP of R LE strengthening exercises and exercises to facilitate R ankle movement. 2) The patient will ambulate independently with appropriate assistive device community distances. 3 ) The patient will ambulate on steps with supervision for safety using proper technique. 4) Increase LE strength 1/3 muscle grade to increase stability of gait. 5) The patient will be indpendent with all transfers. Physical Therapy Plan: PT 1-2 times a day M-F for gait training, transfer training, LE strengthening exercises.
[2018-10-06] MEDS: ACETAMINOPHEN 325 MG TAB PO PRN (19:38)
[2018-10-06] MEDS: MAGNESIUM HYDROXIDE 30 ML UDC PO PRN (22:24)
[2018-10-07] MEDS: SERTRALINE HCL 50 MG TABLET PO SCH (09:42)
[2018-10-07] MEDS ORDERED: AL HYDROX/MAG HYDROX 30ML UD PO PRN (11:23)
[2018-10-07] MEDS: MAGNESIUM HYDROXIDE 30 ML UDC PO PRN (11:24)
--- NOTE | 2018-10-07 11:29 | Occupational Therapy Tx Note ---
Occupational Therapy Tx Note - Treatment Note Tolerated: Good Total Time Spent With Patient: 60 (gait, ADLs, ther ex) Occupational Therapy Treatment Note: Detail (S: Pt up at EOB with present. He reports left shoulder pain continues with shoulder flexion. Pt is hoping to go home . O: Discussed donning of shoe and AFO, pt's brought in 2 additional pairs of shoes which pt was not able to don with AFO. Donned tennis shoes with assist from OT for AFO. Pt amb 275 feet with wheeled walker and SBA. Pt transported to rehab gym via wheelchair. Modified pts shoe and he was able to don shoe with AFO Indly x 2. Pt educated re: kitchen safety and modifications. Pt amb to rehab kitchen and was able to demonstrate adaptive techniques for meal prep/kitchen activities while using the walker safely. Pt amb to pulleys and completed passive pulleys x 5 min for shoulder flexion, horiz ab/adduction and abduction. Reviewed scapular squeezes and pt was Ind. Green theraband x 15 reps for scapular retraction in sitting. Passive stretches to left shoulder in supine, all motions. Shoulder circles at 90 degrees flexion, rhythmic stabilization left shoulder at 90 degrees flexion x 1 min. MTT to anterior shoulder/bicep tendon area with gentle cross friction massage. Pt transported back to room via wheelchair and he transferred to EOB, doffed shoes/AFO and to supine Indly. A: Pt fatigued, Ind with donning/ doffing AFO and shoes, Ind with kitchen safety/modifications, left shoulder pain continues) Occupational Therapy Problem List: Detail (1. Decreased activity tolerance needed for safe and Ind ADLs/IADLs. 2. Decreased left shoulder strength. 3. Decreased Ind with self care tasks.) Occupational Therapy Goals: 1. Pt will demonstrate improved activity tolerance to allow Ind with self cares and IADLs. 2. Pt will demonstrate improved left shoulder strength to 4+/5 to allow use for all IADLs. 3. Pt will be safe and Ind with showering and total body dressing. Prognosis: Good Occupational Therapy Plan: OT 2-4 times per week to address UE function, activity tolerance, ADLs and IADLs.
--- NOTE | 2018-10-07 14:59 | Physical Therapy Tx Note ---
Physical Therapy Tx Note - Treatment Note Tolerated: Good Total Time Spent With Patient: 15 Physical Therapy Tx Note: Detail (The patient was fatigued this pm. The patient was able to don and doff AFO independently. The patient ambulated 104 feet x 1 supervision for safety only with front wheeled walker. The patient ambulated on stairs with CG of 1 with use of folded walker and one railing with verbal cues for proper technique. The patient returned to bed and refused further activity due to back pain and fatigue.) Physical Therapy Problem List: Detail (1) Decreased R LE strength and sensation 2) Impaired gait pattern due to R LE strength and sensory deficits 3) Nonambulatory on stairs) Physical Therapy Goals: 1) Instruct patient in HEP of R LE strengthening exercises and exercises to facilitate R ankle movement. 2) The patient will ambulate independently with appropriate assistive device community distances. 3 ) The patient will ambulate on steps with supervision for safety using proper technique. 4) Increase LE strength 1/3 muscle grade to increase stability of gait. 5) The patient will be indpendent with all transfers. Physical Therapy Plan: PT 1-2 times a day M-F for gait training, transfer training, LE strengthening exercises.
[2018-10-07] MEDS: CYCLOBENZAPRINE 10MG TABLET PO PRN (21:53)
[2018-10-07] MEDS: HYDROCODONE/APAP 5/325MG TABLET PO PRN (21:53)
--- NOTE | 2018-10-08 09:47 | Physician Progress Note ---
Subjective - Date Date of Progress Note: 10/08/18 - Admitting Diagnosis Diagnosis: Deconditioning due L3-4 fragment and cord compression S/P laminectomy - Subjective Events since last encounter: today was a care conference and patient having both left shoulder pain and right hip pain and he thinks he injuried his shoulder with the fall he had on . patient said it is painful with the physical therapy yesterday. Will xray the left shoulder. He also states his right hip hurts to sleep on it. Nursing Care Plan Problem List Activity Intolerance (Swing Bed) Start: 10/02/18 16: 21 Freq: Status: Active Protocol: Created 10/02/18 16:21 SS (Rec: 10/02/18 16:21 SS [id number]) Altered Thought Process (Fall Risk) Start: 10/03/18 21: 44 Freq: Status: Active Protocol: Created 10/03/18 21:44 RCS (Rec: 10/03/18 21:44 RCS [id number]) Impaired Mobility (Fall Risk) Start: 10/03/18 21: 44 Freq: Status: Active Protocol: Created 10/03/18 21:44 RCS (Rec: 10/03/18 21:44 RCS [id number]) Knowledge Deficit (Swing Bed) Start: 10/02/18 16: 21 Freq: Status: Active Protocol: Created 10/02/18 16:21 SS (Rec: 10/02/18 16:21 SS [id number]) Pain (Swing Bed) Start: 10/02/18 16: 21 Freq: Status: Active Protocol: Created 10/02/18 16:21 SS (Rec: 10/02/18 16:21 SS [id number]) Risk for Injury (Fall Risk) Start: 10/03/18 21: 44 Freq: Status: Active Protocol: Created 10/03/18 21:44 RCS (Rec: 10/03/18 21:44 RCS [id number]) General - Cognitive Patterns Speech: Normal Thought Process: Intact Thought Content: Normal - Communication Select best description of speech pattern: Clear Speech Ability to express ideas and wants: Understood Understanding verbal content: Understands - Mood and Behavior Patterns Appearance: Well Groomed Mood: Normal Attitude: Cooperative Motor Activity: Calm Affect: Appropriate Hallucinations: Denies - Physical Functioning Activity Level: Up with assist x1 Turning: Self ad ricky ROM Ability: Moves all extremities Assistive Devices: 2 Wheel Walker Ambulation Ability: Needs Assist Bed Mobility: Independent Transfer Ability: Independent Bathing Ability: Needs Assist Personal Hygiene: Independent Dressing Ability: Independent Eating (Feeding) Ability: Independent Toileting Ability: Needs Assist Administer Own Medication: Needs Assist - Continence Bowel Pattern: Normal for Patient Bladder Pattern: Normal Meds/Allergies - Allergies Allergies Allergy/AdvReac Type Severity Reaction Status Date / Time No Known Drug Allergies Allergy Verified 09/29/18 10:14 - Active Medications Current Medications Acetaminophen (Tylenol 325mg) 650 mg PO Q4H PRN PRN Reason: PAIN - MILD(1-4)/FEVER Last Admin: 10/06/18 19:38 Dose: 650 mg Hydrocodone Bitart/Acetaminophen ([employer] 5mg/325mg) 1 each PO Q4H PRN PRN Reason: PAIN - MOD TO SEVERE (5-10) Last Admin: 10/07/18 21:53 Dose: 1 each Al Hydroxide/Mg Hydroxide (Maalox) 30 ml PO Q4H PRN PRN Reason: GI UPSET Last Admin: 10/07/18 11:23 Dose: 30 ml Cyclobenzaprine HCl (Flexeril) 10 mg PO TID PRN PRN Reason: MUSCLE SPASM Last Admin: 10/07/18 21:53 Dose: 10 mg Ergocalciferol (Vitamin D2) 50,000 unit PO WEEKLY [facility] Last Admin: 10/06/18 09:30 Dose: 50,000 unit Magnesium Hydroxide (Milk Of Magnesium) 30 ml PO DAILY PRN PRN Reason: INDIGESTION Last Admin: 10/07/18 11:24 Dose: 30 ml Sertraline HCl (Zoloft) 150 mg PO DAILY [facility] Last Admin: 10/07/18 09:42 Dose: 150 mg Objective - Vital Signs Vital Signs: Vital Signs - Last 24 Hrs Temp Pulse Resp BP BP Pulse Ox 10/08/18 09:31 98.8 F 143/83 10/08/18 07:12 98.2 F 74 18 145/81 99 10/07/18 20:00 98.5 F 84 18 121/74 94 L - General General Appearance: Alert, Oriented x3, Cooperative, No acute distress - Head Head exam: Normal inspection - Eye Eye exam: Normal appearance, PERRL Pupils: Normal accommodation - ENT ENT exam: Normal exam, Mucous membranes moist, Normal external ear exam, Normal orophraynx, TM's normal bilaterally Ear exam: Normal external inspection. negative: External canal tenderness Nasal Exam: Normal inspection. negative: Discharge, Sinus tenderness Mouth exam: Normal external inspection, Tongue normal Teeth exam: Normal inspection. negative: Dental caries Throat exam: Normal inspection. negative: Tonsillar erythema, Tonsillar exudate - Neck Neck exam: Normal inspection, Full ROM. negative: Tenderness - Respiratory Respiratory exam: Normal lung sounds bilaterally. negative: Respiratory distress - Cardiovascular Cardiovascular Exam: Regular rate, Normal rhythm, Normal heart sounds - GI/Abdominal GI/Abdominal exam: Soft, Normal bowel sounds. negative: Tenderness - Rectal Rectal exam: Deferred - exam: Deferred - Extremities Extremities exam: Normal inspection, Normal capillary refill, Tenderness (left shoulder pain and worse with abduction of the left arm, right hip pain when he sleeps on it.), Other (numbness right leg with right foot drop, patient has movement of toes and no movement at ankle, his right knee moves and right hip moves) - Back Back exam: Reports: Normal inspection, Full ROM. Denies: Muscle spasm, Rash noted, Tenderness - Neurological Neurological exam: Abnormal gait, Alert, Oriented X3, Reflexes normal, Other ( right foot drop) - Psychiatric Psychiatric exam: Normal affect, Normal mood - Skin Skin exam: Dry, Intact, Normal color, Warm H&P Results - Labs Result Diagrams: 10/03/18 06:12 10/03/18 06:12 Discharge Potential - Discharge Needs Community Services Used Prior to Admission: None Patient Discharge Plan Description: Return Home Community Services Needed at Discharge: Physical Therapy Plan - Swing Bed Certification Initial Certification Due: 10/02/18 14 Day Re-Cert Due: 10/16/18 44 Day Re-Cert Due: 11/15/18 74 Day Re-Cert Due: 12/15/18 - Detailed Diagnosis and Plan (1) Cord compression myelopathy Current Visit: Yes Status: Acute Base Code: G95.20 - UNSPECIFIED CORD COMPRESSION Priority: High (2) Foot drop, right Current Visit: Yes Status: Acute Base Code: M21.371 - FOOT DROP, RIGHT FOOT Priority: Medium (3) Acute exacerbation of chronic low back pain Current Visit: Yes Status: Acute Base Code: M54.5 - LOW BACK PAIN; G89.29 - OTHER CHRONIC PAIN Priority: Medium (4) Hypertension Current Visit: Yes Status: Acute Base Code: I10 - ESSENTIAL (PRIMARY) HYPERTENSION (5) History of urinary retention Current Visit: Yes Status: Acute Base Code: Z87.898 - PERSONAL HISTORY OF OTHER SPECIFIED CONDITIONS Priority: Medium Comment: resolved and doesn't have a varma (6) Contusion of hand, right Current Visit: Yes Status: Acute Base Code: S60.221A - CONTUSION OF RIGHT HAND, INITIAL ENCOUNTER Priority: Low (7) Muscular deconditioning Current Visit: Yes Status: Acute Base Code: R29.898 - OTH SYMPTOMS AND SIGNS INVOLVING THE MUSCULOSKELETAL SYSTEM Priority: High Comment: Weakness in the right leg with some numbness and he has no motion in the right ankle and moves his toes slightly and he has a right foot drop with AFO brace (8) Acute shoulder bursitis Current Visit: Yes Status: Acute Base Code: M75.50 - BURSITIS OF UNSPECIFIED SHOULDER Comment: left shoulder xray motrin 600 mg three times a day - Disposition xray left shoulder and start motrin 600 mg three times a day
[2018-10-08] MEDS: ACETAMINOPHEN 325 MG TAB PO PRN (09:49)
[2018-10-08] MEDS: SERTRALINE HCL 50 MG TABLET PO SCH (09:49)
[2018-10-08] MEDS: CYCLOBENZAPRINE 10MG TABLET PO PRN (09:49)
[2018-10-08] MEDS: IBUPROFEN 600 MG TABLET PO SCH ×2 (12:09→23:21)
--- NOTE | 2018-10-08 14:50 | Physical Therapy Tx Note ---
Physical Therapy Tx Note - Treatment Note Tolerated: Fair Total Time Spent With Patient: 30 Physical Therapy Tx Note: Detail (The patient ambulated with front wheeled walker 67 feet x 1, with verbal cues to not externally hip and toe out. The patient ambulated x 2 on stairs with CG and max verbal cues for proper technique. The patient ambulated on stairs the safest with use of cane against wall and hand hold of 1 (patient does not have railings at home). The patient also ambulated on carpeting 50 feet x 1 with supervision for safety. The patient is to be seen tomorrow am for gait training of stairs with present. ) Physical Therapy Problem List: Detail (1) Decreased R LE strength and sensation 2) Impaired gait pattern due to R LE strength and sensory deficits 3) Nonambulatory on stairs) Physical Therapy Goals: 1) Instruct patient in HEP of R LE strengthening exercises and exercises to facilitate R ankle movement. (Goal Met). 2) The patient will ambulate independently with appropriate assistive device community distances.(Goal Met). 3) The patient will ambulate on steps with supervision for safety using proper technique. 4) Increase LE strength 1/3 muscle grade to increase stability of gait. 5) The patient will be indpendent with all transfers. Physical Therapy Plan: Discharge on 10/09 is anticipated. The patient is to be seen in am for gait training on stairs with present and assisting.
[2018-10-09] MEDS: HYDROCODONE/APAP 5/325MG TABLET PO PRN (00:54)
[2018-10-09] MEDS: CYCLOBENZAPRINE 10MG TABLET PO PRN (00:54)
[2018-10-09] MEDS: IBUPROFEN 600 MG TABLET PO SCH (07:09)
--- NOTE | 2018-10-09 07:33 | RADIOLOGY REPORT ---
EXAM: LEFT SHOULDER HISTORY: FALL ON 09/24/18 WITH PERSISTENT LEFT SHOULDER PAIN. TECHNIQUE: Three views of the left shoulder were obtained. Comparison: Left shoulder radiographs 09/24/18. FINDINGS: Suggestion of subtle linear lucency undermining the greater tuberosity of the proximal humerus with minimal associated cortical step off, better seen on today's exam. Otherwise, no acute osseous findings. Acromioclavicular and glenohumeral joint arthrosis similar from prior study. IMPRESSION: FINDINGS SUSPICIOUS FOR A NONDISPLACED FRACTURE OF THE GREATER TUBEROSITY. JOB NUMBER: [id number] [facility]
[2018-10-09] MEDS: SERTRALINE HCL 50 MG TABLET PO SCH (09:29)
--- NOTE | 2018-10-09 10:01 | Physical Therapy Tx Note ---
Physical Therapy Tx Note - Treatment Note Tolerated: Good Total Time Spent With Patient: 30 Physical Therapy Tx Note: Detail (Pt lying in bed upon arrival; awake/alert, cooperative for therapy. Independent w/bed mobility and sit/stand transfers to front wheeled walker. Ambulated from bedside to stairwell by nrsg station w/ front wheeled walker (67 feet), descended/ascended three steps w/single tip cane and CGA, VCs for technique, twice. Verbalized/demonstrated good understanding. Ambulated w/front wheeled walker from nrsg station to end of ED hallway and back to surgery waiting area for brief sitting rest period (325 feet ) and back to bedside (171 feet). Independent w/all transfers. Left sitting at edge of bed w/call light in reach. Nrs notified. Provided patient w/ outpatient PT appointment card and medical history form.) Physical Therapy Problem List: Detail (1) Decreased R LE strength and sensation 2) Impaired gait pattern due to R LE strength and sensory deficits 3) Nonambulatory on stairs) Physical Therapy Goals: 1) Instruct patient in HEP of R LE strengthening exercises and exercises to facilitate R ankle movement. (Goal Met). 2) The patient will ambulate independently with appropriate assistive device community distances.(Goal Met). 3) The patient will ambulate on steps with supervision for safety using proper technique - Partially met, requires CGA. 4) Increase LE strength 1/3 muscle grade to increase stability of gait. 5) The patient will be independent with all transfers - met. Prognosis: Good Physical Therapy Plan: Anticipate discharge this afternoon; pt is scheduled to begin outpatient therapy W 10/15, 10:30 a.m. with 10:15 arrival.
--- NOTE | 2018-10-09 10:04 | Discharge Summary ---
Providers Discharge Summary Date: 10/09/18 Date of admission: 10/02/18 16:06 Expected Date of Discharge: 10/09/18 Attending physician: Jesus Man Primary care physician: Jesus Man Physical Exam - Vital Signs Vital Signs: Vital Signs - Last 24 Hrs Temp Pulse Resp BP Pulse Ox 10/09/18 08:00 98.0 F 81 17 144/82 97 10/08/18 20:00 98 F 67 18 149/59 93 L - General General Appearance: Alert, Oriented x3, Cooperative, No acute distress - Head Head exam: Normal inspection - Eye Eye exam: Normal appearance, PERRL Pupils: Normal accommodation - ENT ENT exam: Normal exam, Mucous membranes moist, Normal external ear exam, Normal orophraynx, TM's normal bilaterally Ear exam: Normal external inspection. negative: External canal tenderness Nasal Exam: Normal inspection. negative: Discharge, Sinus tenderness Mouth exam: Normal external inspection, Tongue normal Teeth exam: Normal inspection. negative: Dental caries Throat exam: Normal inspection. negative: Tonsillar erythema, Tonsillar exudate - Neck Neck exam: Normal inspection, Full ROM. negative: Tenderness - Respiratory Respiratory exam: Normal lung sounds bilaterally. negative: Respiratory distress - Cardiovascular Cardiovascular Exam: Regular rate, Normal rhythm, Normal heart sounds - GI/Abdominal GI/Abdominal exam: Soft, Normal bowel sounds. negative: Tenderness - Rectal Rectal exam: Deferred - exam: Deferred - Extremities Extremities exam: Normal inspection, Normal capillary refill, Tenderness (left shoulder pain and worse with abduction of the left arm, right hip pain when he sleeps on it.), Other (numbness right leg with right foot drop, patient has movement of toes and no movement at ankle, his right knee moves and right hip moves) - Back Back exam: Reports: Normal inspection, Full ROM, Tenderness (post surgical pain low back). Denies: Muscle spasm, Rash noted - Neurological Neurological exam: Abnormal gait, Alert, Motor sensory deficit (right leg numbness and weakness lower leg and foot), Oriented X3, Reflexes normal, Other ( right foot drop) - Psychiatric Psychiatric exam: Normal affect, Normal mood - Skin Skin exam: Dry, Intact, Normal color, Warm Hospitalization - Hospitalization Admission Diagnosis: Deconditioning due L3-4 fragment and cord compression S/P laminectomy - Problem List (1) Cord compression myelopathy Current Visit: Yes Status: Acute Base Code: G95.20 - UNSPECIFIED CORD COMPRESSION (2) Foot drop, right Current Visit: Yes Status: Acute Base Code: M21.371 - FOOT DROP, RIGHT FOOT (3) Acute exacerbation of chronic low back pain Current Visit: Yes Status: Acute Base Code: M54.5 - LOW BACK PAIN; G89.29 - OTHER CHRONIC PAIN (4) Hypertension Current Visit: Yes Status: Acute Base Code: I10 - ESSENTIAL (PRIMARY) HYPERTENSION (5) History of urinary retention Current Visit: Yes Status: Resolved Base Code: Z87.898 - PERSONAL HISTORY OF OTHER SPECIFIED CONDITIONS Comment: resolved and doesn't have a varma (6) Contusion of hand, right Current Visit: Yes Status: Acute Base Code: S60.221A - CONTUSION OF RIGHT HAND, INITIAL ENCOUNTER (7) Muscular deconditioning Current Visit: Yes Status: Acute Base Code: R29.898 - OTH SYMPTOMS AND SIGNS INVOLVING THE MUSCULOSKELETAL SYSTEM Comment: Weakness in the right leg with some numbness and he has no motion in the right ankle and moves his toes slightly and he has a right foot drop with AFO brace (8) Acute shoulder bursitis Current Visit: Yes Status: Ruled-out Discharge Diagnosis: Laterality: left Qualified Code(s): M75.52 - Bursitis of left shoulder Base Code: M75.50 - BURSITIS OF UNSPECIFIED SHOULDER Comment: left shoulder xray motrin 600 mg three times a day (9) Shoulder fracture, left Current Visit: Yes Status: Acute Base Code: S42.92XA - FRACTURE OF LEFT SHOULDER GIRDLE, PART UNSP, INIT Comment: left greater tuberosity nondisplaced fracture plan to obtain an MRI of the left shoulder to confirm and will treat with a sling - Disposition xray left shoulder and start motrin 600 mg three times a day - Hospitalization Course Disposition: Home, Self-Care Reason For Discharge/Transfer: Medical Stability Hospital Course: Patient is gradually getting stronger in the right leg and still has a right foot drop and using an AFO brace and walking with a walker. Patient had continuous left shoulder pain and a repeat left shoulderr xray revealed a possible nondisplaced greater tuborosity fracture and will obtain an outpatient MRI xray of the left shoulder to confirm. Patient meets discharge criterea and wants to go home. Will have him follow up with neurosurg as scheduled and will follow up with Dr. Man in one week next at 10:00 am Procedures: Imaging and X-Rays 10/08/18 09:22 SHOULDER, LEFT [RAD] Stat 10/09/18 09:55 UPPER EXTREMITY JOINT W CONT [MRI] Stat Abnormal Labs: Abnormal Lab Results 10/03/18 10/03/18 Range/Units 06:12 06:12 RBC 4.13 L (4.40-5.70) M/uL Hgb 13.3 L (14.0-18.0) gm/dl Hct 37.8 L (42.0-52.0) % Monocytes % 10.1 H (0-9) % Random Glucose 118 H (74-109) mg/dL Condition at Discharge: (1) Good Discharge Diagnosis: post laminectomy Surgery for cord compression with disk fragments. right leg weakness and right foot drop. left nondisplaced left shoulder greater tuberosity. hypertension. deconditioning from above problems Discharge Medications - Discharge Medications Prescriptions: Ibuprofen [Motrin 600Mg] 600 mg PO Q8HR #30 tablet Cyclobenzaprine HCl [Flexeril] 10 mg PO TID PRN #30 tablet PRN Reason: MUSCLE SPASM Hydrocodone/APAP 5/325Mg [[place] 5Mg/325Mg] 1 each PO Q4H PRN #14 tab PRN Reason: Pain - Mod To Severe (5-10) Sertraline HCl [Zoloft] 150 mg PO DAILY #45 tab Home Medications: Ambulatory Orders Cyclobenzaprine HCl [Flexeril] 10 mg PO TID 09/24/18 [Last Taken 09/23/18 20:00] Acetaminophen [Tylenol 325Mg] 650 mg PO Q4H PRN tablet 10/09/18 [Last Taken Unknown] Cyclobenzaprine HCl [Flexeril] 10 mg PO TID PRN #30 tablet 10/09/18 [Last Taken Unknown] Ergocalciferol (Vitamin D2) [Vitamin D2] 50,000 unit PO WEEKLY capsule [Last Taken Unknown] Hydrocodone/APAP 5/325Mg [[place] 5Mg/325Mg] 1 each PO Q4H PRN #14 tab 10/09/18 [ Last Taken Unknown] Ibuprofen [Motrin 600Mg] 600 mg PO Q8HR #30 tablet 10/09/18 [Last Taken Unknown] Sertraline HCl [Zoloft] 150 mg PO DAILY #45 tab 10/09/18 [Last Taken Unknown] Discharge Plan - Discharge Instructions Activity at Discharge: As Per Physical Therapy Diet at Discharge: Low Salt Diet Additional Instructions: You will be contacted with the date and time of your follow up appointment at [facility] with Dr. Alva. Outpatient PT at [facility] starting on 10/10. Arrive at 7:15AM for appointment with Lamin. follow up with Dr Man in one week on oct 16 at 1000 am Quality Measures - Quality Measures Quality Measures: Advance Directives, Documentation of Current Medications in Medical Record, Elder Maltreatment Screen and Follow-Up Plan, Screening for High Blood Pressure and F/U Documented - Current Medications Quality Measure: Measure #130: Documentation of Current Medications Documentation of Current Medications: <Current Medications Documented/Reviewed> [G8427] - Blood Pressure Screening Quality Measure: Screening for High Blood Pressure and Follow-Up Documented Does Patient Have Any of the Following: Active Dx of HTN Blood Pressure Classification: Pre-Hypertensive BP Reading Systolic Measurement: 143 Diastolic Measurement: 83 Screening for High Blood Pressure: Patient Exclusion, Hx of HTN [G9744] - Advance Directives Quality Measure: Measure #47: Care Plan Advance Directives Established: No Advance Directives Information Provided To Patient: No Advance Directives on File: No Living Will: No Power of Hospice/Home Health Aide: Yes Power of Hospice/Home Health Aide Name: GUSTAVO FLOOD ( SPOUSE ) Advance Care Planning: <Care Plan/Decision Maker Documented; Discussed & Documented> [1121F] - Elder Abuse Suspicion Index Screening: Elder Abuse Suspicion Index Screening Rely on people for bathing, dressing, shopping, banking, etc: No Prevented from getting food, clothes, medication, etc: No Made to feel shamed or threatened by someone: No Forced to sign papers or use money against will: No Feel afraid, touched in ways not wanted or hurt physically: No Poor eye contact, withdrawn, malnourished, cuts or bruises: No Screening Result: Negative result EASI Reference Information: Ramos CASTILLO, Alana C, Enrique Guzman, Tiana Rosa.Development and validation of a tool to assist physicians identification of elder abuse: The Elder Abuse Suspicion Index (EASI ). Journal of Elder Abuse and Neglect, 2008; 20 (3): 276-300. - Elder Maltreatment Screen Quality Measures: Elder Maltreatment Screen and Follow-Up Plan Elder Maltreatment Screen: <Negative, No Follow-Up Plan Required> [G8734]
--- NOTE | 2018-10-10 10:35 | Rehab Discharge Summary ---
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 2 months ago) the patient was independent with all mobility. 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 The patient shared home mgmt, meal prep and laundry tasks with his , he was responsible for yard work.) Social History: Detail (The patient lives with spouse in a 2 story house with 1 step on the porch and 1 step into the home with no railings. The patient's bedroom and bathroom are on the second floor, but patient will be staying on the first floor initially. The bathroom on the main floor is equipped with a walk in shower with no grab bars or seat and an elevated toilet. The patient has a front wheeled walker and an AFO.) Precautions: [place], Fall, Other (R foot drop, has AFO.) Subjective Information - Subjective Information Per Patient (The patient had complaints of back pain with activity. The patient did not rate his pain using 0 to 10 pain scale.) Objective Data - Mental Status Patient Orientation: Oriented x3 - Visual Perception Appears within normal limits for therapeutic activities - ROM Within normal limits (Trunk ROM was not assessed s/p surgery.) - Strength/Tone Not within normal limits (The patient's L LE strength was 4+ to 5/5. The patient 's R LE strength was : dorsiflexors trace/5 ( palpable contraction ), trace evertors (trace contraction), plantar flexors 3+/5, invertors 3/5, toe extensors trace/5, toe flexors 2/5, knee extensors 3-/5, knee flexors 3+/5, hip flexors 3/5, hip abductors and adductors 3+/5.) - Bed Mobility Independent (Independent with supine to and from sit and scooting up in bed.) - Transfers Independent (sit to and from stand transfer.) - Balance Balance Sitting: Good Balance Standing: Fair (The patient was able to stand without device statically but dynamically patient requires assistance device.) - Sensation Deficit (The patient had diminished sensation to light touch L5, S1, L4 . Pinprick was intact.) - Gait Detail (The patient ambulates community distances independently with front wheeled walker and R AFO community distances.The patient ambulated on stairs with use of standard cane and hand hold of 1 for safety using proper technique with supervision for safety.) Therapy Assessment - Therapy Assessment Detail (The patient was independent to supervision with all mobility. The patient was independent with a HEP of LE strengthening exercises. The patient is being discharged from swingbed unit and is to continue with outpatient PT.) Patient Education - Patient Education Teaching Topic: Exercise/Activity (LE strengthening exercises: ankle pumps, toe curls, LAQ, quad sets,gluteal sets, heel slides, hip marching.) Response: Return Demonstration Teaching Method: Demonstration, Handout Teaching Recipient: Patient Barriers To Learning: Age Related Problem List - Problem List Physical Therapy Problem List: Detail (1) Decreased R LE strength and sensation 2) Impaired gait pattern due to R LE strength and sensory deficits 3) Nonambulatory on stairs) Occupational Therapy Problem List: Detail (1. Decreased activity tolerance needed for safe and Ind ADLs/IADLs. 2. Decreased left shoulder strength. 3. Decreased Ind with self care tasks.) Goals - Goals Physical Therapy Goals: 1) Instruct patient in HEP of R LE strengthening exercises and exercises to facilitate R ankle movement. (Goal Met). 2) The patient will ambulate independently with appropriate assistive device community distances.(Goal Met). 3) The patient will ambulate on steps with supervision for safety using proper technique - (Goal Met). 4) Increase LE strength 1/3 muscle grade to increase stability of gait(Not Met). 5) The patient will be independent with all transfers (Goal Met) Occupational Therapy Goals: 1. Pt will demonstrate improved activity tolerance to allow Ind with self cares and IADLs. 2. Pt will demonstrate improved left shoulder strength to 4+/5 to allow use for all IADLs. 3. Pt will be safe and Ind with showering and total body dressing. Plan - Plan Physical Therapy Plan: Anticipate discharge this afternoon; pt is scheduled to begin outpatient therapy W 10/15, 10:30 a.m. with 10:15 arrival. Occupational Therapy Plan: OT 2-4 times per week to address UE function, activity tolerance, ADLs and IADLs.
--- NOTE | 2018-10-13 08:32 | Rehab Discharge Summary ---
Patient Information - Patient Information Diagnosis: Deconditioning due to L3-L4 fragment and cord compression, s/p Laminectomy Ordered Treatment: OT Evaluate and Treat Surgery: Yes (L3-L4 Laminectomy) Date of Surgery: 09/30/18 Past Medical/Surgical Hx: PAST MEDICAL/SURGICAL HISTORY Past Surgical History appendix PMH - Respiratory Hx Respiratory Disorders No PMH - Cardiovascular Hx Cardiovascular Disorders No Hx Hypertension Yes PMH - Neuro Hx Neurological Disorders Yes Hx Dizziness Yes Hx Headaches Yes Comment: cord compression from L3 l4 disc and right foot drop PMH - GI Hx Gastrointestinal Disorders No PMH - Hx Genitourinary Disorders No PMH - Endocrine Hx Endocrine Disorders No PMH - Musculoskeletal Hx Musculoskeletal Disorders Yes Hx Arthritis Yes PMH - Psych Hx Psychiatric Problems Yes Hx Anxiety Yes PMH - Hematology/Oncology Hx Hematology/Oncology No Disorders Premorbid Status: Detail (Prior to fall (approx. 2 months ago) the patient was independent with all mobility. 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 The patient shared home mgmt, meal prep and laundry tasks with his , he was responsible for yard work.) Social History: Detail (The patient lives with spouse in a 2 story house with 1 step on the porch and 1 step into the home with no railings. The patient's bedroom and bathroom are on the second floor, but patient will be staying on the first floor initially. The bathroom on the main floor is equipped with a walk in shower with no grab bars or seat and an elevated toilet. The patient has a front wheeled walker and an AFO.) Precautions: [place], Fall, Other (R foot drop, has AFO.) Objective Data - Pain Pain Present: Yes (Mild pain in low back) - Mental Status Patient Orientation: Oriented x3 - Visual Perception Appears within normal limits for therapeutic activities - ROM Within normal limits (Ash UE AROM WNL although pt has significant pain with left shoulder flexion) - Strength/Tone Not within normal limits (Ash UE strength 4+/5 with exception of left shoulder flexion which was graded 3/5 due to pain from fall.) - Coordination Appears within normal limits for therapeutic activities - Bed Mobility Independent - Transfers Independent - Balance Balance Sitting: Good Balance Standing: Fair - Sensation Intact - Gait Detail (Pt ambulating household distances with walker Indly.) - ADL's/IADL's Detail (Pt is Ind with showering in sitting, total body dressing, grooming/ hygiene and kitchen activities using walker.) Therapy Assessment - Therapy Assessment Detail (Pt is Ind with ADLs and IADLs needed to allow safe return home with spouse.) Problem List - Problem List Physical Therapy Problem List: Detail (1) Decreased R LE strength and sensation 2) Impaired gait pattern due to R LE strength and sensory deficits 3) Nonambulatory on stairs) Occupational Therapy Problem List: Detail (1. Decreased activity tolerance needed for safe and Ind ADLs/IADLs. 2. Decreased left shoulder strength. 3. Decreased Ind with self care tasks.) Goals - Goals Physical Therapy Goals: 1) Instruct patient in HEP of R LE strengthening exercises and exercises to facilitate R ankle movement. (Goal Met). 2) The patient will ambulate independently with appropriate assistive device community distances.(Goal Met). 3) The patient will ambulate on steps with supervision for safety using proper technique - (Goal Met). 4) Increase LE strength 1/3 muscle grade to increase stability of gait(Not Met). 5) The patient will be independent with all transfers (Goal Met) Occupational Therapy Goals: Goals Met: 1. Pt will demonstrate improved activity tolerance to allow Ind with self cares and IADLs. 3. Pt will be safe and Ind with showering and total body dressing. Goal not met: 2. Pt will demonstrate improved left shoulder strength to 4+/5 to allow use for all IADLs . (ongoing pain from fall) Prognosis - Prognosis Good Plan - Plan Physical Therapy Plan: Anticipate discharge this afternoon; pt is scheduled to begin outpatient therapy W 10/15, 10:30 a.m. with 10:15 arrival. Occupational Therapy Plan: Pt discharged home with outpatient PT scheduled.
== END 2018-10-09 13:25 | disposition home or self-care (01) | DRG 948 ==
LOC: MEDSURG 16:06
PROVIDERS: ADMIT Emergency Medicine; ATTEND Emergency Medicine
DX: R53.81 Other malaise (principal); G95.20 Unspecified cord compression; M54.5 Low back pain; M21.371 Foot drop, right foot; I10 Essential (primary) hypertension; M19.90 Unspecified osteoarthritis, unspecified site; Z87.891 Personal history of nicotine dependence
CPT/HCPCS: 80048; 85025; 97110; 97116; 97530; 97535; 99306

== ENCOUNTER 2018-11-05 09:29 | Emergency (ER) | payer MEDICARE ==
--- NOTE | 2018-11-05 09:56 | Emergency Department Record ---
History of Present Illness - General Chief Complaint: Dizziness Stated Complaint: DIZZY Time Seen by Provider: 11/05/18 09:42 Source: Patient, RN notes reviewed Mode of Arrival: Ambulatory - History of Present Illness Initial Comments: four days of room spinning and worse today and this happened once before but didn't need medication. About 2 months ago had back surgery at [facility] for disk cord compression with a right foot drop MD Complaint: Dizziness Onset/Timin -: Days(s) Timing: Awoke with symptoms, Gradual onset, Sudden onset Description: Sense of movement, Other History of Same: Yes History of Trauma: No Severity: Moderate Improves With: Remaining still, Rest Worsens With: Movement Associated Symptoms: Denies other symptoms - Darrell Coma Scale Eye Response: (4) Open spontaneously Motor Response: (6) Obeys commands Verbal Response: (5) Oriented Darrell Total: 15 - Related Data Home Medications Medication Instructions Recorded Confirmed Last Taken Trazodone HCl 50 mg PO QHS 11/05/18 11/05/18 Unknown Previous Rx's Medication Instructions Recorded Cyclobenzaprine HCl [Flexeril] 10 mg PO TID PRN #30 tablet 10/09/18 Ergocalciferol (Vitamin D2) 50,000 unit PO WEEKLY capsule 10/09/18 [Vitamin D2] Sertraline HCl [Zoloft] 150 mg PO DAILY #45 tab 10/09/18 Meclizine HCl [Antivert] 25 mg PO Q8H #30 tablet 11/05/18 Allergies Allergy/AdvReac Type Severity Reaction Status Date / Time No Known Drug Allergies Allergy Verified 09/29/18 10:14 Travel Screening - Travel/Exposure Within Last 30 Days Have you traveled within the last 30 days?: No Review of Systems Reviewed: No additional complaints except as noted below Constitutional: Reports: As per HPI. Denies: Chills, Fever, Malaise, Night sweats, Weakness, Weight change Eyes: Reports: As per HPI. Denies: Eye discharge, Eye pain, Photophobia, Vision change ENT: Reports: As per HPI. Denies: Congestion, Dental pain, Ear pain, Epistaxis , Hearing loss, Throat pain Respiratory: Reports: As per HPI. Denies: Cough, Dyspnea, Hemoptysis, Stridor, Wheezes Cardiovascular: Reports: As per HPI. Denies: Arrhythmia, Chest pain, Dyspnea on exertion, Edema, Murmurs, Orthopnea, Palpitations, Paroxysmal nocturnal dyspnea, Rheumatic Fever, Syncope Endocrine: Reports: As per HPI. Denies: Fatigue, Heat or cold intolerance, Polydipsia, Polyuria Gastrointestinal: Reports: As per HPI. Denies: Abdominal pain, Constipation, Diarrhea, Hematemesis, Hematochezia, Melena, Nausea, Vomiting Genitourinary: Reports: As per HPI. Denies: Dysuria, Frequency, Hematuria, Incontinence, Retention, Testicular pain, Testicular mass, Urgency Musculoskeletal: Reports: As per HPI. Denies: Arthralgia, Back pain, Gout, Joint swelling, Myalgia, Neck pain Skin: Reports: As per HPI. Denies: Bruising, Change in color, Change in hair/ nails, Lesions, Pruritus, Rash Neurological: Reports: As per HPI, Vertigo (sitting up and looking up). Denies : Abnormal gait, Confusion, Headache, Numbness, Paresthesias, Seizure, Tingling , Tremors, Weakness Psychiatric: Reports: As per HPI. Denies: Anxiety, Auditory hallucinations, Depression, Homicidal thoughts, Suicidal thoughts, Visual hallucinations Hematological/Lymphatic: Reports: As per HPI. Denies: Anemia, Blood Clots, Easy bleeding, Easy bruising, Swollen glands Past Medical History - SOCIAL HISTORY Smoking Status: Former smoker - RESPIRATORY Hx Respiratory Disorders: No - CARDIOVASCULAR Hx Cardio Disorders: No Hx Hypertension: Yes - NEURO Hx Neuro Disorders: Yes Hx Dizziness: Yes Hx Headaches: Yes Comment:: cord compression from L3 l4 disc and right foot drop - GI Hx GI Disorders: No - Hx Genitourinary Disorders: No - ENDOCRINE Hx Endocrine Disorders: No - MUSCULOSKELETAL Hx Musculoskeletal Disorders: Yes Hx Arthritis: Yes Hx Back Injury: Yes Comment:: right foot drop - PSYCH Hx Psych Problems: Yes Hx Anxiety: Yes - HEMATOLOGY/ONCOLOGY Hx Hematology/Oncology Disorders: No Family Medical History Any Significant Family History?: Yes Hx Alcohol Use: Brother/Sister Hx Cancer: Mother Physical Exam - General General Appearance: Alert, Oriented x3, Cooperative, No acute distress - Head Head exam: Normal inspection - Eye Eye exam: Normal appearance, PERRL Pupils: Normal accommodation - ENT ENT exam: Normal exam, Mucous membranes moist, Normal external ear exam, Normal orophraynx, TM's normal bilaterally Ear exam: Normal external inspection. negative: External canal tenderness Nasal Exam: Normal inspection. negative: Discharge, Sinus tenderness Mouth exam: Normal external inspection, Tongue normal Teeth exam: Normal inspection. negative: Dental caries Throat exam: Normal inspection. negative: Tonsillar erythema, Tonsillar exudate - Neck Neck exam: Normal inspection, Full ROM. negative: Tenderness - Respiratory Respiratory exam: Normal lung sounds bilaterally. negative: Respiratory distress - Cardiovascular Cardiovascular Exam: Regular rate, Normal rhythm, Normal heart sounds - GI/Abdominal GI/Abdominal exam: Soft, Normal bowel sounds. negative: Tenderness - Rectal Rectal exam: Deferred - exam: Deferred - Extremities Extremities exam: Normal inspection, Full ROM, Normal capillary refill. negative: Tenderness - Back Back exam: Reports: Normal inspection, Full ROM. Denies: Muscle spasm, Rash noted, Tenderness - Neurological Neurological exam: Abnormal gait, Alert, Oriented X3, Reflexes normal, Other ( right foot weakness with dorsi flexion but able to move it in the last week) - Psychiatric Psychiatric exam: Normal affect, Normal mood - Skin Skin exam: Dry, Intact, Normal color, Warm Course Vital Signs 11/05/18 09:33 Temperature 98.2 F Pulse Rate 73 Respiratory 20 Rate Blood Pressure 173/108 Pulse Ox 99 Medical Decision Making - Data Complexity MDM Data: Labs Ordered and/or Reviewed (wbc 4,100 hg 13.0 bun 13,creat 1.0), X- Ray Ordered and/or Reviewed (neg for acute findings), EKG Ordered and/or Reviewed (NSR , no acute changes) - Lab Data Result diagrams: 11/05/18 10:15 11/05/18 10:15 Disposition Clinical Impression: BPV (benign positional vertigo) Qualifiers: Laterality: unspecified laterality Qualified Code(s): H81.10 - Benign paroxysmal vertigo, unspecified ear Disposition: Home, Self-Care Condition: (1) Good Instructions: Benign Paroxysmal Positional Vertigo (ED) Additional Instructions: follow up with Dr turpin on saturday at 10:00 am Prescriptions: Meclizine HCl [Antivert] 25 mg PO Q8H #30 tablet Forms: Patient Portal Access Time of Disposition: 11:32 Quality - Quality Measures Quality Measures: N/A - Blood Pressure Screening Does Patient Have Any of the Following: No, Active Dx of HTN Blood Pressure Classification: Hypertensive Reading Systolic Measurement: 173 Diastolic Measurement: 108 Screening for High Blood Pressure: Patient Exclusion, Hx of HTN [[id number]]
[2018-11-05] MEDS ORDERED: 0.9 % SODIUM CHLORIDE 1000ML 1,000 ML IV PRN (10:00)
[2018-11-05] MEDS ORDERED: MECLIZINE 25 MG TABLET PO ONE (10:02)
[2018-11-05 10:40] LABS: BASO % 0.2 % (0-6); BLOOD UREA NITROGEN 13 mg/dL (8-23); EOS % 2.2 % (0-6); EST GLOMERULAR FILTRATION RATE > 60 mL/min; GRAN % 73.8 % (47-80); HEMATOCRIT 37.1 % (42.0-52.0); MEAN CELL VOLUME 93.2 fl (81-97); MEAN PLATELET VOLUME 9.3 fl (7.4-10.4); MONO % 6.8 % (0-9); PLATELET COUNT 174 K/uL (130-400); RED BLOOD COUNT 3.98 M/uL (4.40-5.70); RED CELL DISTRIBUTION WIDTH 13.1 % (11.5-14.5); WHITE BLOOD COUNT W/O DIFF 4.1 K/uL (4.2-12.2)
[2018-11-05 10:43] LABS: GLUCOSE,RANDOM 111 mg/dL (74-109); MEAN CORPUSCULAR HEMOGLOBIN 32.6 pg (27-33)
--- NOTE | 2018-11-07 12:44 | CT SCAN REPORT ---
EXAM: CT OF THE BRAIN WITHOUT CONTRAST HISTORY: INTERMITTENT DIZZINESS FOR TWO WEEKS. VISUAL DISTURBANCE. TECHNIQUE: Routine noncontrast CT of the brain was obtained. Comparison: CT of the brain without and with contrast dated 04/10/18. FINDINGS: The subarachnoid spaces are mildly prominent consistent with age related atrophy. The ventricles are not grossly dilated. Minor periventricular and subcortical white matter lucencies are again noted scattered in each cerebral hemisphere, not significantly changed. These are nonspecific, but likely areas of chronic small vessel ischemia. No definite new area of abnormally increased or decreased attenuation is noted throughout the brain substance. No abnormal extraaxial fluid collection is seen. Incompletely imaged retention cysts or less likely polyps within the lower right maxillary sinus. The paranasal sinuses and mastoid air cells are otherwise clear. The orbits as visualized are unremarkable. IMPRESSION: 1. NO CT EVIDENCE OF ACUTE MAJOR VESSEL INFARCT, INTRACRANIAL HEMORRHAGE, NOR MASS WITHOUT SIGNIFICANT CHANGE IN APPEARANCE OF THE BRAIN SINCE 04/10/18. 2. MILD ATROPHY. 3. MILD WHITE MATTER LUCENCIES REDEMONSTRATED IN EACH CEREBRAL HEMISPHERE CONSISTENT WITH CHRONIC SMALL VESSEL ISCHEMIA. 4. RETENTION CYSTS WITHIN THE RIGHT MAXILLARY SINUS. JOB NUMBER: [id number] [facility]
== END 2018-11-05 11:59 | disposition home or self-care (01) ==
LOC: ER 09:29
DX: H81.10 Benign paroxysmal vertigo, unspecified ear (principal); I10 Essential (primary) hypertension; Z87.891 Personal history of nicotine dependence
CPT/HCPCS: 36416; 70450; 71045; 80048; 85025; 85730; 93005; 93010; 96360; 99284